=== PATIENT | female | born 1955 | race Hispanic/Latino ===

== ENCOUNTER 2019-11-17 22:58 | Observation (INO) | payer OTHER, SELFPAY ==
[~2019-11-17] VITALS: Ht 154.9 cm; Wt 84.8 kg
[2019-11-17 23:36] LABS: APPEARANCE,URINE Clear (CLEAR); BILIRUBIN,URINE Negative (NEGATIVE); COLOR,URINE Yellow (YELLOW); GLUCOSE, URINE (UA) Negative (NEGATIVE); KETONES,URINE Negative (NEGATIVE); LEUKOCYTE ESTERASE ,URINE Negative (NEGATIVE); NITRATE,URINE Negative (NEGATIVE); OCCULT BLOOD,URINE Negative (NEGATIVE); PH,URINE 6.5 (5.0-8.0); PROTEIN,URINE Negative (NEGATIVE)
[2019-11-17 23:47] LABS: BASOPHILS % (AUTO) 0.6 % (0.0-5.0); EOSINOPHILS % (AUTO) 1.5 % (0.0-8.0); HEMATOCRIT 39.1 % (36-48); LYMPHOCYTES % (AUTO) 36.8 % (21.0-51.0); MEAN CORPUSCULAR HEMOGLOBIN 28.8 pg (27.0-33.0); MEAN CORPUSCULAR HGB CONC 32.2 g/dL (32.0-36.0); MEAN CORPUSCULAR VOLUME 89.3 fL (79-99); MONOCYTES % (AUTO) 6.5 % (3.0-13.0); NEUTROPHILS % (AUTO) 54.3 % (40.0-77.0); PLATELET COUNT (AUTO) 195 K/uL (130-400); RED BLOOD CELL COUNT(AUTO) 4.38 MIL/uL (4.00-5.50); RED CELL DISTRIBUTION WIDTH 14.1 % (11.0-15.5); WHITE BLOOD COUNT (AUTO) 7.9 K/uL (4.8-10.8)
[2019-11-18 00:09] LABS: CREATININE 0.6 mg/dL (0.5-1.5); POTASSIUM 3.8 mmol/L (3.5-5.1)
[2019-11-18 00:14] LABS: ALBUMIN 3.6 g/dL (3.5-5.0); BILIRUBIN,TOTAL 0.3 mg/dL (0.2-1.0); TOTAL PROTEIN, SERUM 7.7 g/dL (6.0-8.3)
[2019-11-18] MEDS ORDERED: NITROGLYCERIN 1GM/1 INCH PACKET TD ONE ×2 (00:47→08:59)
[2019-11-18] MEDS ORDERED: ACETAMINOPHEN 325 MG TAB ONE (00:47)
[2019-11-18] MEDS ORDERED: CLONIDINE HCL 0.1 MG TABLET ONE (01:33)
[2019-11-18] MEDS ORDERED: HYDRALAZINE HCL 20 MG/ML VIAL IM PRN (04:00)
[2019-11-18] MEDS ORDERED: MORPHINE SULFATE 2 MG/ML 1ML SYG IVP PRN (04:00)
[2019-11-18] MEDS ORDERED: DEXTROSE 50%-WATER 50 ML DISP.SYRIN IV PRN (04:00)
[2019-11-18] MEDS ORDERED: ACETAMINOPHEN 325 MG TAB PO PRN (04:00)
[2019-11-18] MEDS ORDERED: NITROGLYCERIN 1GM/1 INCH PACKET TD SCH (04:00)
[2019-11-18] MEDS ORDERED: GLUCAGON 1MG KIT 1 MG ML IM PRN (04:00)
[2019-11-18] MEDS ORDERED: ONDANSETRON HCL 4 MG/2 ML VIAL IV PRN (04:00)
[2019-11-18 06:42] LABS: BASOPHILS % (AUTO) 0.7 % (0.0-5.0); EOSINOPHILS % (AUTO) 2.1 % (0.0-8.0); HEMATOCRIT 37.3 % (36-48); LYMPHOCYTES % (AUTO) 39.5 % (21.0-51.0); MEAN CORPUSCULAR HEMOGLOBIN 29.2 pg (27.0-33.0); MEAN CORPUSCULAR HGB CONC 32.7 g/dL (32.0-36.0); MEAN CORPUSCULAR VOLUME 89.2 fL (79-99); MONOCYTES % (AUTO) 7.3 % (3.0-13.0); NEUTROPHILS % (AUTO) 50.3 % (40.0-77.0); PLATELET COUNT (AUTO) 178 K/uL (130-400); RED BLOOD CELL COUNT(AUTO) 4.18 MIL/uL (4.00-5.50); RED CELL DISTRIBUTION WIDTH 14.2 % (11.0-15.5); WHITE BLOOD COUNT (AUTO) 6.7 K/uL (4.8-10.8)
[2019-11-18 07:00] LABS: HEMOGLOBIN A1C 6.8 % (4.0-6.0)
[2019-11-18 07:01] LABS: ALBUMIN 3.5 g/dL (3.5-5.0); BILIRUBIN,TOTAL 0.2 mg/dL (0.2-1.0); CREATININE 0.6 mg/dL (0.5-1.5); POTASSIUM 4.1 mmol/L (3.5-5.1); TOTAL PROTEIN, SERUM 7.2 g/dL (6.0-8.3)
[2019-11-18] MEDS: INSULIN HUMULIN R 100 UNIT/ML 3ML SQ SCH ×4 (07:30→21:10)
[2019-11-18] MEDS ORDERED: AMLODIPINE BESYLATE 5 MG TAB ONE (08:59)
[2019-11-18] MEDS ORDERED: FAMOTIDINE/PF 20 MG/2 ML VIAL IV ONE (09:00)
[2019-11-18] MEDS: LISINOPRIL 40 MG TABLET PO SCH (09:00)
[2019-11-18] MEDS: METOPROLOL SUCCINATE 50 MG TAB.SR.24H PO SCH (09:00)
[2019-11-18] MEDS: AMLODIPINE BESYLATE 5 MG TAB PO SCH (09:00)
[2019-11-18] MEDS ORDERED: METOPROLOL TARTRATE 25 MG TAB ONE (09:00)
[2019-11-18] MEDS: FAMOTIDINE/PF 20 MG/2 ML VIAL IV SCH ×2 (09:00→21:04)
--- NOTE | 2019-11-18 10:01 | NUR ---
INITIAL SW met with patient. Patient lives with her daughter and son, Billy Sahu, [phone]. No home services. DME: BPM, glucometer (no insulin), nebulizer. 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 She is able to complete ADL's independently and drives. No PCP at this time. Pharmacy if needed will be [facility] located in [place]. DCP is home. Addendum: 11/18/19 at 1006 by ALYSHA SOLOMON SS Amended: Links added.
[2019-11-18] MEDS ORDERED: METO25TA3 PO (13:18)
[2019-11-18] MEDS ORDERED: AMLO10TA7 PO (13:18)
[2019-11-18] MEDS ORDERED: LISI40TA4 PO (13:18)
[2019-11-18] MEDS: NITROGLYCERIN 1GM/1 INCH PACKET TD SCH ×2 (14:00→22:00)
[2019-11-18 15:45] VITALS: BP 150/73
--- NOTE | 2019-11-18 15:45 | NUR ---
ADMISSION RECEIVED PT FROM ER, AMBULATING FROM WHEELCHAIR TO BED, GAIT SLOW BUT STEADY WITH STAND BY ASSIST. PT DENIES PAIN, SOB NAUSEA BUT DOES C/O INTERMITTENT DIZZINESS. CALL LIGHT WITHIN REACH, FAMILY AT BEDSIDE.
[2019-11-18 19:40] VITALS: BP 162/82
[2019-11-18 23:00] VITALS: BP 164/88
[2019-11-19 03:49] VITALS: BP 133/59
[2019-11-19] MEDS: NITROGLYCERIN 1GM/1 INCH PACKET TD SCH ×2 (06:00→06:19)
[2019-11-19] MEDS: INSULIN HUMULIN R 100 UNIT/ML 3ML SQ SCH (06:28)
[2019-11-19 07:00] VITALS: BP_SYST 107; BP_SYST 144; BP_DIAS 68; BP_DIAS 71
--- NOTE | 2019-11-19 07:35 | NUR ---
ASSESSMENT ENCOUNTERED PT A&OX3, CALM COOPERATIVE AND DOES NOT APPEAR TO BE IN ANY DISTRESS NOR ANY NEURO DEFICITS PRESENT. PT DENIES PAIN, SOB, NAUSEA. PT IS AMBULATORY, GAIT STEADY AND STRONG WITH STAND BY ASSIST. CALL LIGHT WITHIN REACH, FAMILY AT BEDSIDE.
[2019-11-19] MEDS: METOPROLOL SUCCINATE 50 MG TAB.SR.24H PO SCH (08:45)
[2019-11-19] MEDS: AMLODIPINE BESYLATE 5 MG TAB PO SCH (08:45)
[2019-11-19] MEDS: FAMOTIDINE/PF 20 MG/2 ML VIAL IV SCH (08:46)
[2019-11-19] MEDS: LISINOPRIL 40 MG TABLET PO SCH (08:46)
[2019-11-19 11:00] VITALS: BP 134/58
--- NOTE | 2019-11-19 11:29 | NUR ---
NUTRITION EDUCATION COMPLETED RD PROVIDED HYPERTENSION, WEIGHT LOSS, AND ADEQUATE CARBOHYDRATE INTAKE NUTRITION EDUCATION IN [place]. RD PROVIDED A LIST OF FOODS RECOMMENDED/ TO AVOID. ALL QUESTIONS WERE ANSWERED AND PT VERBALIZED UNDERSTANDING. EDUCATION MATERIALS WERE PROVIDED. Addendum: 11/19/19 at [address] Amended: Links added.
[2019-11-19] MEDS ORDERED: HYDR25TA PO (15:12)
[2019-11-19] MEDS ORDERED: HYDROCHLOROTHIAZIDE 25 MG TABLET PO SCH (16:30)
--- NOTE | 2019-11-19 16:50 | NUR ---
DISCHARGE INSTRUCTIONS GIVEN, PIV REMOVED AND INTACT, DISCHARGED HOME TO FAMILY VEHICLE VIA WHEELCHAIR
[2019-11-20] MEDS ORDERED: HYDROCHLOROTHIAZIDE 25 MG TABLET PO SCH (09:00)
== END 2019-11-19 17:40 | disposition home or self-care (01) ==
LOC: EDH 22:58 → EDHIP 11-18 03:50 → INTOOBSV 11-18 03:50 → 2DH 11-18 15:58
PROVIDERS: ADMIT Hospitalist; ATTEND Hospitalist
DX: I16.0 Hypertensive urgency (principal); R07.89 Other chest pain; I10 Essential (primary) hypertension; E11.9 Type 2 diabetes mellitus without complications; E66.9 Obesity, unspecified; F17.210 Nicotine dependence, cigarettes, uncomplicated; Z90.49 Acquired absence of other specified parts of digestive tract; Z90.710 Acquired absence of both cervix and uterus; Z79.899 Other long term (current) drug therapy; Z68.35 Body mass index [BMI] 35.0-35.9, adult
CPT/HCPCS: 36415 ×2; 71046; 80053 ×2; 80061; 81003; 82550; 82948 ×2; 83036; 83735; 84443; 84484 ×3; 85025 ×2; 93005 ×3; 96372 ×2; 96374; 96376; 99285; G0378 ×38; J0360; J3490 ×3

== ENCOUNTER 2022-07-01 11:26 | Emergency (ER) | payer OTHER ==
[~2022-07-01] VITALS: Ht 162.6 cm; Wt 82.6 kg
[~2022-07-01 11:26] MED LIST: AMLO-258 PO; HYDR25TA PO; LISI40TA9 PO; METO25TA3 PO
[2022-07-01] MEDS ORDERED: HYDROCODONE/ACETAMINOPHEN 10/325 MG TAB PO ONE (13:00)
[2022-07-01] MEDS ORDERED: CYCLOBENZAPRINE HCL 10 MG TABLET PO ONE (13:00)
[2022-07-01 14:43] VITALS: BP 122/60
[2022-07-01] MEDS ORDERED: NAPR-1180 PO (15:24)
[2022-07-01] MEDS ORDERED: CYCL10TA16 PO (15:24)
== END 2022-07-01 15:29 | disposition home or self-care (01) ==
LOC: EDH 11:26
DX: S16.1XXA Strain of muscle, fascia and tendon at neck level, initial encounter (principal); S39.012A Strain of muscle, fascia and tendon of lower back, initial encounter; S40.012A Contusion of left shoulder, initial encounter; S70.02XA Contusion of left hip, initial encounter; S80.02XA Contusion of left knee, initial encounter; M17.12 Unilateral primary osteoarthritis, left knee; I10 Essential (primary) hypertension; Z90.49 Acquired absence of other specified parts of digestive tract; Z98.890 Other specified postprocedural states; Z79.899 Other long term (current) drug therapy; W19.XXXA Unspecified fall, initial encounter; Y93.89 Activity, other specified; Y92.098 Other place in other non-institutional residence as the place of occurrence of the external cause; Y99.8 Other external cause status
CPT/HCPCS: 72040; 72100; 73030; 73502; 73552; 73562